=== PATIENT | male | born 1975 | race Caucasian/White ===

== ENCOUNTER 2022-05-22 08:10 | Inpatient (IN) | payer MEDICARE ==
[2022-05-22] VITALS (9 sets, daily range): BP systolic 98–118; BP diastolic 59–75
[~2022-05-22] VITALS: Ht 147.3 cm; Wt 49.9 kg
--- NOTE | 2022-05-22 08:20 | NUR ---
BIBS FOR NAUSEA/VOMITING. A/O X 3, TOLERATING WELL ON ROOM AIR. PATIENT BROTHER AT BEDSIDE.
[2022-05-22] MEDS ORDERED: IV NS 0.9% 1,000 ML BAG IV ONE (09:00)
[2022-05-22] MEDS ORDERED: ONDANSETRON HCL/PF 4 MG/2 ML VIAL IVP ONE (09:00)
--- NOTE | 2022-05-22 09:01 | NUR ---
EMT AT BEDSIDE FOR EKG
--- NOTE | 2022-05-22 09:01 | NUR ---
X-RAY AT BEDSIDE
--- NOTE | 2022-05-22 09:12 | NUR ---
SENIOR MOBILE SOLUTIONS ARCHITECT AT BEDSIDE
[2022-05-22] MEDS ORDERED: ONDANSETRON HCL/PF 4 MG/2 ML VIAL ONE (09:13)
--- NOTE | 2022-05-22 09:22 | NUR ---
PATIENT WITH ONE EPISODE OF EMESIS IN ER, PHLEGM-LIKE DISCHARGE, NAUSEA MEDICATIONS GIVEN. MD MADE AWARE.
[2022-05-22 09:58] LABS: CALCIUM, SERUM 8.1 mg/dL (8.5-10.1); CARBON DIOXIDE 26 mmol/L (21-32); CHLORIDE 100 mmol/L (98-107); CREATININE 0.7 mg/dL (0.6-1.3); GLUCOSE 119 mg/dL (74-106); POTASSIUM 3.8 mmol/L (3.5-5.1); SODIUM SERUM 135 mmol/L (136-145); UREA NITROGEN, BLOOD 21 mg/dL (7-18)
[2022-05-22 10:18] LABS: BASOPHILS # (AUTO) 0.1 K/uL (0.0-0.2); BASOPHILS % (AUTO) 0.4 % (0.0-2.0); LYMPHOCYTES # (AUTO) 1.7 K/uL (0.8-4.8); LYMPHOCYTES % (AUTO) 10.8 % (20.0-44.0); MEAN CORPUSCULAR VOLUME 63 fL (80-96)
[2022-05-22 10:39] LABS: EOSINOPHILS % (AUTO) 0.1 % (0.0-6.0); MEAN CORPUSCULAR HGB CONC 28 g/dl (31.0-36.0); MONOCYTES # (AUTO) 1.8 K/uL (0.1-1.30); MONOCYTES % (AUTO) 11.7 % (2.0-12.0); PLATELET COUNT (AUTO) 418 K/uL (150-450); RED BLOOD CELL COUNT(AUTO) 3.24 MIL/uL (4.5-6.0); WHITE BLOOD COUNT (AUTO) 15.6 K/uL (4.3-11.0)
[2022-05-22 10:41] LABS: HEMOGLOBIN 5.6 g/dL (13.5-17.5)
[2022-05-22 10:42] LABS: HEMATOCRIT 20 % (39-51)
--- NOTE | 2022-05-22 10:50 | NUR ---
MOVE SHEET SUBMITTED.
--- NOTE | 2022-05-22 10:58 | NUR ---
RAPID FLU SWAB OBTAINED
--- NOTE | 2022-05-22 10:58 | NUR ---
COVID SWAB OBTAINED
[2022-05-22] MEDS ORDERED: PANTOPRAZOLE 40 MG VIAL IV ONE (11:00)
[2022-05-22] MEDS ORDERED: PANTOPRAZOLE 40 MG VIAL ONE (11:02)
[2022-05-22 11:05] LABS: ALANINE AMINOTRANSFERASE 31 U/L (12-78); ALBUMIN 2.8 g/dL (3.4-5.0); ALKALINE PHOSPHATASE 68 U/L (46-116); ASPARTATE AMINOTRANSFERASE 21 U/L (15-37); BILIRUBIN,DIRECT 0.1 mg/dL (0.0-0.2); BILIRUBIN,TOTAL 0.3 mg/dL (0.2-1.0); LIPASE 396 U/L (73-393); TOTAL PROTEIN, SERUM 6.6 g/dL (6.4-8.2)
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
[2022-05-22 11:42] LABS: LYMPHOCYTES % (MANUAL) 9 % (16-48); MONOCYTES % (MANUAL) 11 % (0-11.0); NEUTROPHILS % (MANUAL) 80 (42-76)
[2022-05-22 12:16] LABS: IRON, SERUM 11 ug/dl (50-175); TOTAL IRON BINDING CAPACITY 261 ug/dl (250-450)
--- NOTE | 2022-05-22 13:07 | NUR ---
Admit to Room 313-2, per Nurse admin.
--- NOTE | 2022-05-22 14:09 | NUR ---
Report given to ANTIONE Bajwa
--- NOTE | 2022-05-22 14:16 | NUR ---
Patient transferred to [facility], all care endorsed to ANTIONE Bajwa
--- NOTE | 2022-05-22 14:30 | NUR ---
PIER MASTER ASSISTANT NOTES: RECEIVED REPORT BY PHONE FROM ANTIONE NEGRON. PT ARRIVED IN UNIT VIA GURNEY, TRANSFERRED TO BED WITH 3 PERSON ASSIST. PT IS AWAKE, ALERT AND ORIENTED X3, ABLE TO MAKE NEEDS KNOWN. CAREGIVER MP AT BEDSIDE. VITALS WNL, ON RA WITH NO S/S OF SOB, DENIES PAIN AT THIS TIME. IV ACCESS @ ROGER ML, SL, PATENT AND INTACT, ALSO AT L HAND# 24, SL, PATENT/INTACT. PLACED ON TELE MONITOR, CURRENT READING SINUS TACH HR= 112. CHECKED FOR SKIN ISSUES, NONE NOTED. PT IS BED-BOUND, BUE CONTRACTED. ORIENTED PT TO UNIT AND STAFF, URGED TO USE CALL LIGHT FOR HELP, KEPT TABLE AND CALL LIGHT WITHIN REACH. ALL SAFETY MEASURES IN PLACE, WILL CONT WITH PLAN OF CARE DURING SHIFT.
[2022-05-22] MEDS ORDERED: Z GUARD REMEDY 4 OZ OINT TP PRN (15:00)
[2022-05-22] MEDS ORDERED: MAGNESIUM HYDROXIDE 30 ML UDC PO PRN (15:00)
[2022-05-22] MEDS ORDERED: TEMAZEPAM 15 MG CAPSULE PO PRN (15:00)
[2022-05-22] MEDS ORDERED: ONDANSETRON HCL/PF 4 MG/2 ML VIAL IVP PRN (15:00)
[2022-05-22] MEDS ORDERED: HYDROCODONE/APAP 5/325MG TABLET PO PRN (15:00)
[2022-05-22] MEDS ORDERED: MORPHINE SULFATE INJ 2 MG/ML DISP.SYRIN IV PRN (15:00)
[2022-05-22] MEDS ORDERED: ACETAMINOPHEN 325 MG TABLET PO PRN (15:00)
[2022-05-22] MEDS ORDERED: MAG HYDROX/AL HYDROX/SIMETH 30 ML UDC PO PRN (15:00)
[2022-05-22] MEDS: PANTOPRAZOLE 40 MG VIAL IV SCH ×2 (16:03→21:00)
[2022-05-22] MEDS ORDERED: GUAIFENESIN/D-METHORPHAN HB 5 ML UDC PO PRN (19:30)
--- NOTE | 2022-05-22 19:45 | NUR ---
SALESPERSON FURNITURE OPENING NOTE PATIENT AWAKE IN BED WITH CAREGIVER AT BEDSIDE, ALERT/ORIENTED X 3, PT ABLE TO MAKE NEEDS KNOWN. PATIENT STABLE ON 2 LPM OF O2 VIA NASAL CANNULA, NO S/S OF DISTRESS OR SOB NOTED, BREATHING EVEN AND UNLABORED. PATIENT ON EXTERNAL CHIN STRAP SEWER READING SINUS TACHY, HR: 116. IV ACCESS ON LEFT HAND #24 G INTACT AND ROGER ML INTACT. PATIENT S/P 1 UNIT PRBC'S, AWAITING TO BE PICKED UP FOR CT OF ABDOMEN, THEN PATIENT WILL RECEIVED 1 MORE UNIT PRBC'S. SAFETY MEASURES IN PLACE: CALL LIGHT WITHIN REACH, SIDE RAILS UP X 3, BED LOCKED IN LOWEST POSITION, HOB ELEVATED, BED ALARM ON. WILL CONTINUE TO MONITOR PATIENT
--- NOTE | 2022-05-22 19:54 | NUR ---
EVENT MANAGER CLOSING NOTES: PT IS AWAKE, ALERT AND ORIENTED X3, ABLE TO MAKE NEEDS KNOWN. CAREGIVER MP AT BEDSIDE. VITALS WNL, ON RA WITH NO S/S OF SOB, DENIES PAIN AT THIS TIME. IV ACCESS @ ROGER ML, SL, PATENT AND INTACT, ALSO AT L HAND# 24, SL, PATENT/INTACT. TELE MONITOR, CURRENT READING SINUS TACH HR= 114. PT IS BED-BOUND, BUE CONTRACTED. S/P 1 UNIT OF PRCB TRANSFUSION, ALL NEEDS MET, KEPT PT CLEAN, DRY AND COMFORTABLE. TABLE AND CALL LIGHT WITHIN REACH. ALL SAFETY MEASURES IN PLACE, ENDORSED TO PM SHIFT.
--- NOTE | 2022-05-22 20:10 | NUR ---
PROGRAM HOST NOTE PATIENT BACK FROM CT OF ABDOMEN IN STABLE CONDITION. WILL CONTINUE TO MONITOR PATIENT
--- NOTE | 2022-05-22 20:54 | NUR ---
FARMWORKER GRAIN NOTE PATIENT HAVING PERSISTENT HICCUPS, CONTACTED FOOD SERVICE COUNTER CLERK MD CHENTE LOVE WITH ORDER FOR BACLOFEN 5 MG TID X 1 DAY. ORDER VERIFIED AND CARRIED OUT
[2022-05-22] MEDS: BACLOFEN (10 MG) 10 MG TABLET PO SCH (21:12)
--- NOTE | 2022-05-22 21:20 | NUR ---
PRUNER NOTE SCHEDULED PROTONIX 40 MG IV Q12H NOT GIVEN BECAUSE IT WAS JUST GIVEN 5 HOURS AGO AND IS Q12H
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
--- NOTE | 2022-05-22 23:41 | NUR ---
CLAIM APPROVER NOTE BLOOD TRANSFUSION OF 1 UNIT PRBC'S STARTED, PATIENT VITAL SIGNS WNL. WILL CONTINUE TO MONITOR PATIENT
[2022-05-23] VITALS (9 sets, daily range): BP systolic 102–116; BP diastolic 61–75
--- NOTE | 2022-05-23 02:35 | NUR ---
ACQUISITION ANALYST NOTE BLOOD TRANSFUSION FINISHED INFUSING, PATIENT TOLERATED WELL, NO ADVERSE REACTIONS NOTED, VITAL SIGNS WNL
[2022-05-23] MEDS: IV NS 0.9% 1,000 ML IV PRN ×2 (03:10→20:22)
--- NOTE | 2022-05-23 06:53 | NUR ---
TRAIN CONTROL ELECTRONIC TECHNICIAN CLOSING NOTE PATIENT AWAKE IN BED, ALERT/ORIENTED X 4, PT ABLE TO MAKE NEEDS KNOWN. PATIENT STABLE ON 2 LPM OF O2 VIA NASAL CANNULA, NO S/S OF DISTRESS OR SOB NOTED, BREATHING EVEN AND UNLABORED. PATIENT ON EXTERNAL SPORTS MARKETER READING SINUS TACHY, HR: 107. IV ACCESS ON LEFT HAND #24 G INTACT AND ROGER ML INTACT AND INFUSING NS @ 75 ML/HR. PATIENT DID NOT SLEEP MUCH THIS SHIFT, OFFERED SLEEPING MEDICATION MULTIPLE TIMES BUT PATIENT REFUSED. MEDICATIONS GIVEN ORDERED, PT NEEDS MET THROUGHOUT SHIFT, PATIENT TURNED AND REPOSITIONED. SAFETY MEASURES IN PLACE: CALL LIGHT WITHIN REACH, SIDE RAILS UP X 3, BED LOCKED IN LOWEST POSITION, HOB ELEVATED, BED ALARM ON. WILL ENDORSE TO DAYSHIFT RN FOR CONTINUITY OF CARE
[2022-05-23 07:16] LABS: CALCIUM, SERUM 7.8 mg/dL (8.5-10.1); CREATININE 0.5 mg/dL (0.6-1.3); PHOSPHORUS 3.1 mg/dL (2.5-4.9); POTASSIUM 3.5 mmol/L (3.5-5.1)
--- NOTE | 2022-05-23 07:30 | NUR ---
PATIENT RECEIVED RESTING COMFORTABLY IN BED. NO S/S OR C/O PAIN OR DISTRESS NOTED. SIDE RAILS UP X2, CALL LIGHT LEFT WITHIN REACH. WILL CONTINUE PLAN OF CARE.
[2022-05-23 07:38] LABS: BASOPHILS % (AUTO) 0.4 % (0.0-2.0); EOSINOPHILS % (AUTO) 0.1 % (0.0-6.0); HEMATOCRIT 29 % (39-51); HEMOGLOBIN 8.9 g/dL (13.5-17.5); LYMPHOCYTES # (AUTO) 2.3 K/uL (0.8-4.8); LYMPHOCYTES % (AUTO) 19.1 % (20.0-44.0); MEAN CORPUSCULAR HGB CONC 31 g/dl (31.0-36.0); MEAN CORPUSCULAR VOLUME 72 fL (80-96); MONOCYTES # (AUTO) 2.5 K/uL (0.1-1.30); MONOCYTES % (AUTO) 20.4 % (2.0-12.0); NEUTROPHILS # (AUTO) 7.3 K/uL (1.8-8.9); PLATELET COUNT (AUTO) 345 K/uL (150-450); RED BLOOD CELL COUNT(AUTO) 3.97 MIL/uL (4.5-6.0); WHITE BLOOD COUNT (AUTO) 12.1 K/uL (4.3-11.0)
[2022-05-23] MEDS: BACLOFEN (10 MG) 10 MG TABLET PO SCH ×3 (08:45→17:36)
[2022-05-23] MEDS: PANTOPRAZOLE 40 MG VIAL IV SCH ×2 (08:45→21:30)
[2022-05-23] MEDS ORDERED: DOCUSATE SODIUM 100 MG CAPSULE PO SCH (09:00)
[2022-05-23 09:04] LABS: BAND % (MANUAL) 2 % (0.0-5.0); LYMPHOCYTES % (MANUAL) 16 % (16-48); MONOCYTES % (MANUAL) 19 % (0-11.0); NEUTROPHILS % (MANUAL) 63 (42-76)
[2022-05-23] MEDS ORDERED: BISACODYL SUPP (10 MG) 10 MG/SUPP.RECT SUPP.RECT RC ONE (14:00)
[2022-05-23] MEDS ORDERED: SENNOSIDES/DOCUSATE SODIUM 1 TAB TABLET PO PRN (14:00)
[2022-05-23] MEDS ORDERED: LACTULOSE 10 G/15 ML UDC (PYXIS) PO ONE (14:00)
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
[2022-05-23] MEDS: DOCUSATE SODIUM 100 MG CAPSULE PO SCH (17:36)
--- NOTE | 2022-05-23 18:30 | NUR ---
MD CALLED DR HENDRICKS. STATED HE IS CANCELLING EGD AND COLONOSCOPY AFTER SPEAKING WITH MOTHER WHERE SHE VOICED HER CONCERNS.
--- NOTE | 2022-05-23 18:42 | NUR ---
CHANGE OF SHIFT REPORT PT RESTING COMFORTABLY IN BED. NO S/S OR C/O PAIN OR DISTRESS NOTED. SIDE RAILS UP X2, CALL LIGHT LEFT WITHIN REACH. PT KEPT CLEAN, DRY, AND COMFORTABLE. NO SIGNIFICANT CHANGES SINCE PREVIOUS SHIFT. WILL GIVE REPORT TO CAPRICE TALBOT.
--- NOTE | 2022-05-23 19:46 | NUR ---
RN OPENING NOTE PATIENT AWAKE IN BED. A/OX4 W/ DEVELOPMENTAL DELAY. NO S/S OF DISTRESS, BREATHING WITHOUT DIFFICULTY ON 2L NC. ROGER MIDINE #18 INTACT AND PATENT W/ NS 75ML/HR. TELE READS SR 95. SAFETY MEASURES IN PLACE: BED LOCKED AND AT LOWEST POSITION, MID-FOWLERS, RAILS UP X2, CALL ESTEVES WITHIN REACH. WILL CONTINUE TO MONITOR PATIENT.
[2022-05-23 20:11] LABS: HEMOGLOBIN 8.5 g/dL (13.5-17.5)
--- NOTE | 2022-05-23 21:01 | NUR ---
RN NOTE SPOKE W/ GUERO, PHARMACIST. PER PHARMACIST RAMIRO (W/ A DUE TIME OF 05/23/22 @1400) IS TO BE GIVEN NOW: 05/23/22, 2100. MEDICATION WILL BE ADMINISTERED. PATIENT O/W STABLE; WILL CONTINUE TO MONITOR PATIENT.
[2022-05-23] MEDS: SOD FERRIC GLUC 125 MG in IV NS 0.9% 100 ML IV SCH (21:30)
[2022-05-24] VITALS (10 sets, daily range): BP systolic 100–157; BP diastolic 62–90
--- NOTE | 2022-05-24 01:45 | NUR ---
RN NOTES - PT IS BACK FROM EGD PROCEDURE IN STABLE CONDITION AT 0120 ACCOMPANIED BY 2 OR STAFF, AOX4, ON 2LPM VIA NC, VS STABLE AND RECORDED. NEW MD ORDERS RECEIVED - SPEECH THERAPIST WAS CALLED FOR SWALLOW EVALUATION. WILL CONTINUE TO MONITOR. Addendum: 05/24/22 at 1456 by ARPAN HITCHCOCK RN WRONG TIME
[2022-05-24 06:29] LABS: BASOPHILS # (AUTO) 0.1 K/uL (0.0-0.2); BASOPHILS % (AUTO) 0.8 % (0.0-2.0); EOSINOPHILS % (AUTO) 1.2 % (0.0-6.0); HEMATOCRIT 30 % (39-51); HEMOGLOBIN 9.1 g/dL (13.5-17.5); LYMPHOCYTES # (AUTO) 3.8 K/uL (0.8-4.8); LYMPHOCYTES % (AUTO) 49.7 % (20.0-44.0); MEAN CORPUSCULAR HGB CONC 31 g/dl (31.0-36.0); MEAN CORPUSCULAR VOLUME 73 fL (80-96); MONOCYTES # (AUTO) 0.9 K/uL (0.1-1.30); MONOCYTES % (AUTO) 11.3 % (2.0-12.0); NEUTROPHILS # (AUTO) 2.8 K/uL (1.8-8.9); PLATELET COUNT (AUTO) 353 K/uL (150-450); RED BLOOD CELL COUNT(AUTO) 4.06 MIL/uL (4.5-6.0); WHITE BLOOD COUNT (AUTO) 7.5 K/uL (4.3-11.0)
--- NOTE | 2022-05-24 07:02 | NUR ---
RN CLOSING NOTE PATIENT AWAKE IN BED. A/OX4. NO S/S OF DISTRESS, BREATHING WITHOUT DIFFICULTY ON 2L NC. ROGER MIDLINE #18 INTACT AND PATENT W/ NS 75ML/HR. TELE READS SR 92. SAFETY MEASURES IN PLACE: BED LOCKED AND AT LOWEST POSITION, MID-FOWLERS, RAILS UP X2, CALL ESTEVES WITHIN REACH. WILL ENDORSE TO NEXT SHIFT FOR PRASANTH.
[2022-05-24 07:03] LABS: CALCIUM, SERUM 8.1 mg/dL (8.5-10.1); CREATININE 0.5 mg/dL (0.6-1.3); POTASSIUM 3.5 mmol/L (3.5-5.1)
--- NOTE | 2022-05-24 07:15 | NUR ---
ELECTRONIC DESIGN ENGINEER OPENING NOTE RECEIVED PATIENT AWAKE IN BED, ALERT/ORIENTED X 4, PT ABLE TO MAKE NEEDS KNOWN. ON 2 LPM OF O2 VIA NASAL CANNULA, TOLERATING WELL WITH NO S/S OF DISTRESS OR SOB NOTED, BREATHING EVEN AND UNLABORED. ON TELEMONITORING READING SINUS TACHY AT 107 HR. IV ACCESSES ON LEFT HAND #24 G INTACT AND ROGER ML INTACT AND INFUSING NS @ 75 ML/HR, BOTH PATENT. PATIENT DENIES PAIN NOR DISCOMFORT AT THIS TIME. FOR EGD TODAY, PATIENT REMAINS ON NPO. SAFETY MEASURES IN PLACE: CALL LIGHT WITHIN REACH, SIDE RAILS UP X 3, BED LOCKED AND IN LOWEST POSITION, HOB ELEVATED, BED ALARM ON. WILL CONTINUE TO MONITOR.
[2022-05-24] MEDS: DOCUSATE SODIUM 100 MG CAPSULE PO SCH ×2 (08:02→16:02)
[2022-05-24] MEDS: PANTOPRAZOLE 40 MG VIAL IV SCH ×2 (08:30→21:20)
--- NOTE | 2022-05-24 08:30 | NUR ---
RN NOTES - DVT PUMPS APPLIED WITH CG MP AT BEDSIDE
--- NOTE | 2022-05-24 09:20 | NUR ---
RN NOTES - ANTIONE SCOTT WITNESSED VERBAL CONSENTS FROM THE PATIENT FOR EGD PROCEDURE WITH DR HENDRICKS ALONG WITH ANESTHESIA AND BLOOD TRANSFUSION WELL, CHECKED LEVEL OF CONSCIOUSNESS AOX4, ALSO NOTED PT'S REQUEST TO NOT USE NITROUS OXIDE.
--- NOTE | 2022-05-24 09:22 | NUR ---
RN NOTES - SPOKED TO MRS MOORE THRU CG MP'S PHONE AND SHE IS QUESTIONING THE EGD PROCEDURE, INFORMED THAT I CAN SEE IT PENDING ON THE SURGERY PROCEDURES THIS AFTERNOON. CALLED SURGERY SPOKE TO LUIS FELIPE AND SHE IS SEEING PENDING EGD WITH DR HENDRICKS WELL. INFORMED DR LAY OF THE STATUS.
--- NOTE | 2022-05-24 10:40 | NUR ---
RN NOTES - BROTHER MOO AND MRS MOORE HERE AT BEDSIDE, GAVE AN UPDATE PENDING SURGERY - AWAITING CONFIRMATION FROM DR HENDRICKS
[2022-05-24] MEDS: IV NS 0.9% 1,000 ML IV PRN (11:21)
[2022-05-24 11:41] LABS: BAND % (MANUAL) 4 % (0.0-5.0); EOSINOPHILS % (MANUAL) 2 % (0-4); LYMPHOCYTES % (MANUAL) 27 % (16-48); METAMYELOCYTES % 1 % (0-0); MONOCYTES % (MANUAL) 14 % (0-11.0); NEUTROPHILS % (MANUAL) 50 (42-76)
--- NOTE | 2022-05-24 11:57 | NUR ---
RN NOTES - BROTHER MOO AND MOTHER SPOKE WITH DR HENDRICKS WITH OR TECH AT BEDSIDE, PT WAS BROUGHT TO OR VIA HIS BED ON OXYGEN VIA NC AT AROUND 1150 AM FOR HIS EGD PROCEDURE
--- NOTE | 2022-05-24 13:45 | NUR ---
RN NOTES - PT IS BACK FROM EGD PROCEDURE IN STABLE CONDITION AT 0120 ACCOMPANIED BY 2 OR STAFF, AOX4, ON 2LPM VIA NC, VS STABLE AND RECORDED. NEW MD ORDERS RECEIVED - SPEECH THERAPIST WAS CALLED FOR SWALLOW EVALUATION. WILL CONTINUE TO MONITOR.
[2022-05-24] MEDS: SOD FERRIC GLUC 125 MG in IV NS 0.9% 100 ML IV SCH (15:56)
--- NOTE | 2022-05-24 19:15 | NUR ---
MUSICAL STRING MAKER CLOSING NOTE PATIENT AWAKE IN BED WITH HOB ELEVATED, ALERT/ORIENTED X 4, STILL ON 2 LPM OF O2 VIA NASAL CANNULA, TOLERATING WELL WITH NO S/S OF DISTRESS OR SOB NOTED, BREATHING EVEN AND UNLABORED. STILL ON TELEMONITORING READING SINUS TACHY AT UP TO 125 BPM. STILL IV ACCESSES ON LEFT HAND #24 G INTACT AND ROGER ML INTACT AND INFUSING NS @ 75 ML/HR, BOTH PATENT. REPORTS NO PAIN NOR DISCOMFORT AT THIS TIME. S/P EGD TODAY, PT ON SOFT DIET AND ON ASPIRATION PRECAUTIONS. ALL NEEDS MET, ALL MEDS GIVEN. SAFETY MEASURES MAINTAINED: CALL LIGHT WITHIN REACH, SIDE RAILS UP X 3, BED LOCKED AND IN LOWEST POSITION, HOB ELEVATED, BED ALARM ON. ENDORSED TO PURCHASE PRICE ANALYST NURSE.
--- NOTE | 2022-05-24 19:45 | NUR ---
RN OPENING NOTE PATIENT AWAKE IN BED; CAREGIVER AT BEDSIDE. A/OX4. NO S/S OF DISTRESS, BREATHING WITHOUT DIFFICULTY ON NC 2L. ROGER MIDLINE #18 SL INTACT AND PATENT; L-HAND #22 INTACT AND PATENT W/ NS 75ML/HR. 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 SAFETY MEASURES IN PLACE: BED LOCKED AND AT LOWEST POSITION, MID-FOWLERS, RAILS UP X2, CALL ESTEVES WITHIN REACH. WILL CONTINUE TO MONITOR PATIENT.
[2022-05-25] MEDS: IV NS 0.9% 1,000 ML IV PRN (02:28)
[2022-05-25 05:12] VITALS: BP 126/89
--- NOTE | 2022-05-25 06:43 | NUR ---
RN CLOSING NOTE PATIENT AWAKE IN BED. A/OX4. NO S/S OF DISTRESS, BREATHING WITHOUT DIFFICULTY ON 2L NC. ROGER MIDLINE #18 INTACT AND PATENT W/ NS 75ML/HR; L-HAND #22 SL INTACT AND PATENT. TELE READS ST 108. SAFETY MEASURES IN PLACE: BED LOCKED AND AT LOWEST POSITION, MID-FOWLERS, RAILS UP X2, CALL ESTEVES WITHIN REACH. WILL ENDORSE TO NEXT SHIFT FOR PRASANTH.
--- NOTE | 2022-05-25 07:45 | NUR ---
RN OPENING NOTE PATIENT AWAKE IN BED; CAREGIVER AT BEDSIDE. A/OX4. WITH DELAYED RSPONSES. NO S/S OF DISTRESS, BREATHING WITHOUT DIFFICULTY ON NC 2L. ROGER MIDLINE #18 SL INTACT AND PATENT; L-HAND #22 INTACT AND PATENT W/ NS 75ML/HR. TELE READS ST 102 . SAFETY MEASURES IN PLACE: BED LOCKED AND AT LOWEST POSITION, TURN AND REPOSITIONED FOR COMFORT AND GOOD CIRCULATION. MID-FOWLERS, RAILS UP X2, CALL ESTEVES WITHIN REACH. WILL CONTINUE TO MONITOR PATIENT.
[2022-05-25 08:00] VITALS: BP 104/69
[2022-05-25 08:08] LABS: BASOPHILS % (AUTO) 0.3 % (0.0-2.0); EOSINOPHILS % (AUTO) 0.8 % (0.0-6.0); HEMATOCRIT 30 % (39-51); HEMOGLOBIN 9.1 g/dL (13.5-17.5); LYMPHOCYTES % (AUTO) 52.8 % (20.0-44.0); MEAN CORPUSCULAR HGB CONC 31 g/dl (31.0-36.0); MEAN CORPUSCULAR VOLUME 73 fL (80-96); MONOCYTES # (AUTO) 1.5 K/uL (0.1-1.30); MONOCYTES % (AUTO) 11.3 % (2.0-12.0); NEUTROPHILS # (AUTO) 4.6 K/uL (1.8-8.9); NEUTROPHILS % (AUTO) 34.8 % (43.0-81.0); PLATELET COUNT (AUTO) 431 K/uL (150-450); WHITE BLOOD COUNT (AUTO) 13.2 K/uL (4.3-11.0)
[2022-05-25 08:32] LABS: CALCIUM, SERUM 8.2 mg/dL (8.5-10.1); CREATININE 0.5 mg/dL (0.6-1.3)
[2022-05-25] MEDS: DOCUSATE SODIUM 100 MG CAPSULE PO SCH ×2 (08:35→16:18)
[2022-05-25] MEDS ORDERED: PANTOPRAZOLE 40 MG/PACK PACK PO SCH (09:00)
[2022-05-25] MEDS ORDERED: POTASSIUM CHLORIDE 20 MEQ POWDER PACKET PO ONE (10:00)
--- NOTE | 2022-05-25 10:00 | NUR ---
YISSEL: AVILA received call from [facility]IS[facility] Division Officer: Niranjan Almendarez tel: [phone] who was requesting discharge plan for pt. AVILA notified them that the pt. will be discharging possibly today to [facility].
--- NOTE | 2022-05-25 11:28 | NUR ---
YISSEL #[id number] AT BEDSIDE
[2022-05-25] MEDS: POTASSIUM CHLORIDE 20 MEQ TAB.PRT.SR PO SCH ×3 (11:31→13:15)
[2022-05-25] MEDS ORDERED: FERR325T23 PO (13:21)
[2022-05-25] MEDS ORDERED: PANT40SU2 PO (13:21)
[2022-05-25 15:14] LABS: LYMPHOCYTES % (MANUAL) 37 % (16-48); MONOCYTES % (MANUAL) 13 % (0-11.0); NEUTROPHILS % (MANUAL) 50 (42-76)
[2022-05-25 16:00] VITALS: BP 130/85
[2022-05-25] MEDS: SOD FERRIC GLUC 125 MG in IV NS 0.9% 100 ML IV SCH (16:08)
--- NOTE | 2022-05-25 16:14 | NUR ---
A/O X3. INCONTINENCE CARE PROVIDED. REPOSITIONED EVERY 2 HRS FOR COMFORT. FALL PRECAUTIONS MAINTAINED AT ALL TIMES. PATIENT IS GOING TO [facility], . REPORT GIVEN TO LOUISA. DAVID AT BEDSIDE AND HAS AGREED FOR PT TO GO [facility].
--- NOTE | 2022-05-25 18:41 | NUR ---
POT SANDER CLOSING NOTE PATIENT AWAKE IN BED, ALERT/ORIENTED X 4, PT ABLE TO MAKE NEEDS KNOWN. PATIENT STABLE ON 2 LPM OF O2 VIA NASAL CANNULA, NO S/S OF DISTRESS OR SOB NOTED, BREATHING EVEN AND UNLABORED. PATIENT ON EXTERNAL FNP READING SINUS TACHY, HR: 107. IV ACCESS ON LEFT HAND #24 G INTACT AND ROGER ML INTACT AND INFUSING NS @ 75 ML/HR. PT NEEDS MET THROUGHOUT SHIFT, PATIENT TURNED AND REPOSITIONED. SAFETY MEASURES IN PLACE: CALL LIGHT WITHIN REACH, SIDE RAILS UP X 3, BED LOCKED IN LOWEST POSITION, HOB ELEVATED, BED ALARM ON. WILL ENDORSE TO NIGHTSHIFT RN FOR CONTINUITY OF CARE
== END 2022-05-25 19:15 | DRG 368 ==
LOC: ER 08:28 → TELE 13:24
PROVIDERS: ADMIT Nurse Practitioner Acute Care; ATTEND Student in an Organized Health Care Education/Training Program
PROC: 30233N1 Transfusion of Nonautologous Red Blood Cells into Peripheral Vein, Percutaneous Approach (ICD-10-PCS; 2022-05-22)
PROC: 05HA33Z Insertion of Infusion Device into Left Brachial Vein, Percutaneous Approach (ICD-10-PCS; 2022-05-22)
PROC: 0DB48ZX Excision of Esophagogastric Junction, Via Natural or Artificial Opening Endoscopic, Diagnostic (ICD-10-PCS; principal; 2022-05-24)
DX: K21.01 Gastro-esophageal reflux disease with esophagitis, with bleeding (principal); K85.90 Acute pancreatitis without necrosis or infection, unspecified; E87.1 Hypo-osmolality and hyponatremia; E46 Unspecified protein-calorie malnutrition; D62 Acute posthemorrhagic anemia; G91.9 Hydrocephalus, unspecified; E87.20 Acidosis, unspecified; K56.49 Other impaction of intestine; J90 Pleural effusion, not elsewhere classified; D50.9 Iron deficiency anemia, unspecified; K44.9 Diaphragmatic hernia without obstruction or gangrene; Z20.822 Contact with and (suspected) exposure to COVID-19; K56.41 Fecal impaction; Z98.2 Presence of cerebrospinal fluid drainage device; Z88.2 Allergy status to sulfonamides; Z88.3 Allergy status to other anti-infective agents; M48.02 Spinal stenosis, cervical region; M48.061 Spinal stenosis, lumbar region without neurogenic claudication; E86.1 Hypovolemia; G31.84 Mild cognitive impairment of uncertain or unknown etiology; Z74.01 Bed confinement status; E88.09 Other disorders of plasma-protein metabolism, not elsewhere classified; N20.0 Calculus of kidney; K22.89 Other specified disease of esophagus
CPT/HCPCS: 36410; 36415; 71045-TC; 80048-TC; 80076-TC; 83540-TC; 83605-TC; 83690-TC; 83735-TC; 84100-TC; 84484-TC; 85025-TC; 85027-TC; 85730-TC; 86850-TC; 87081-TC; 88305-TC; 88313-TC; 88342; 92526; 92611-TC; 93307-TC; A4223; C9113; C9803; G0378; J2405; J2704; J2916; J3490; J7030; J7050; P9016